=== PATIENT | male | born 1965 | race Caucasian/White ===

== ENCOUNTER 2018-09-21 22:54 | Emergency (ER) | payer BC | END 2018-09-22 01:20 | disposition home or self-care (01) | LOC: JER 22:54 ==

== ENCOUNTER 2019-10-30 23:25 | Inpatient (IN) | payer BC ==
[2019-10-30 23:39] VITALS: BMI 32.5
[2019-10-31] MEDS ORDERED: ACETAMINOPHEN 1000 MG/100 ML VIAL (NON FORMULARY) IVPB ONE ×2 (00:54→07:43)
[2019-10-31] MEDS ORDERED: SODIUM CHLORIDE 0.9% 500 ML INFUS.BAG IV ONE (00:54)
--- NOTE | 2019-10-31 00:54 | PDOC ---
History of Present Illness - General Chief Complaint: Chest Pain Stated Complaint: CHEST PAIN Time Seen by Provider: 10/30/19 23:55 - History of Present Illness Initial Comments: Richard Wetzel is a 54 y/o male with PMH significant for HTN. Presents today with first time chest pain. Gradual onset at 4:15pm after he took his autistic daughter to an appt at the electrical technician instructor's office and was helping hold her down for a blood draw. Pain is non reproducible. Describes the sensation as chest pressure. No pain radiation. Mildly pleuritic chest pain. Denies dizziness/shortness of breath/abdominal pain/leg swelling. Mild diaphoresis. SocHx: never smoker FamHx: Mother has CABG in 60s Past History - Medical History Allergies/Adverse Reactions: Allergies Allergy/AdvReac Type Severity Reaction Status Date / Time Penicillins Allergy Verified 10/30/19 23:39 Home Medications: Ambulatory Orders NK [No Known Home Medication] 10/31/19 Asthma: Yes COPD: No HTN: Yes (no med) Other medical history: hemocromotosis - Psycho-Social/Smoking History Smoking History: Never smoked Have you smoked in the past 12 months: No - Substance Abuse Hx (Audit-C & DAST Scrn) How often the patient has a drink containing alcohol: Never Score: In Men: 4 or > Positive; In Women: 3 or > Positive: 0 Screen Result (Pos requires Nsg. Audit-10AR): Negative Review of Systems - Review of Systems Comments:: GENERAL/CONSTITUTIONAL: No fever or chills. No weakness._ HEAD, EYES, EARS, NOSE AND THROAT: No change in vision. No change in hearing. No sore throat._ CARDIOVASCULAR: Reports chest pressure. No shortness of breath. RESPIRATORY: Denies cough, hemoptysis_ GASTROINTESTINAL: No nausea, vomiting, diarrhea or constipation._ GENITOURINARY: No dysuria, frequency, or change in urination._ MUSCULOSKELETAL: No joint or muscle swelling or pain. No neck or back pain._ SKIN: No rash. Reports diaphoresis. NEUROLOGIC: No headache, vertigo, loss of consciousness, or change in strength/sensation._ ENDOCRINE: No increased thirst. No abnormal weight change_ HEMATOLOGIC/LYMPHATIC: No anemia, easy bleeding, or history of blood clots._ ALLERGIC/IMMUNOLOGIC: No hives or skin allergy._ *Physical Exam - Vital Signs Last Vital Signs Temp Pulse Resp BP Pulse Ox 98.2 F 81 18 154/90 99 10/31/19 06:24 10/31/19 10:00 10/31/19 10:00 10/31/19 10:00 10/31/19 10:41 - Physical Exam GENERAL: Awake, alert, and oriented to person/place/time, in no acute distress_ HEAD: No signs of trauma, normocephalic, atraumatic _ EYES: PERRLA, EOMI, sclera anicteric, conjunctiva clear_ ENT: Hearing grossly normal, nares patent, oropharynx clear without exudates. No uvular deviation. Moist mucosa_ NECK: Normal ROM, supple, no lymphadenopathy, JVD, or masses_ LUNGS: No distress, speaks in full sentences, clear to auscultation bilaterally _ HEART: Regular rate and rhythm, normal S1 and S2, no murmurs appreciated, peripheral pulses normal and equal bilaterally._ ABDOMEN: Soft, nontender, normoactive bowel sounds. No guarding, no rebound. No masses_ EXTREMITIES: Normal inspection, Normal range of motion, no edema. No clubbing or cyanosis_ NEUROLOGICAL: Cranial nerves II through XII grossly intact. Normal speech, normal gait, no focal sensorimotor deficits _ SKIN: Warm, mildly diaphoretic, normal turgor, no rashes or lesions noted_ ED Treatment Course - LABORATORY CBC & Chemistry Diagram: 10/31/19 00:30 10/31/19 00:30 - ADDITIONAL ORDERS Additional order review: 10/31/19 00:30 RBC 5.14 MCV 91.6 MCHC 34.2 RDW 13.2 MPV 8.9 Neutrophils % 68.0 Lymphocytes % 19.5 Monocytes % 9.1 Eosinophils % 2.7 Basophils % 0.7 - RADIOLOGY Radiology Studies Ordered: Category Date Time Status CHEST X-RAY PORTABLE* [RAD] Stat Radiology 10/31/19 00:28 Completed - Medications Given in the ED: ED Medications Discontinued Medications Generic Name Dose Route Start Last Admin Trade Name Freq PRN Reason Stop Dose Admin Acetaminophen 1,000 mg 10/31/19 00:54 10/31/19 01:07 Ofirmev Injection - IVPB 10/31/19 00:55 1,000 mg ONCE ONE Administration Acetaminophen 1,000 mg 10/31/19 07:43 10/31/19 07:56 Ofirmev Injection - IVPB 10/31/19 07:44 1,000 mg ONCE ONE Administration Aspirin 324 mg 10/31/19 02:23 10/31/19 02:35 Asa - PO 10/31/19 02:24 324 mg ONCE ONE Administration Atorvastatin Calcium 80 mg 10/31/19 08:21 10/31/19 09:17 Lipitor - PO 10/31/19 08:22 80 mg ONCE ONE Administration Clopidogrel Bisulfate 600 mg 10/31/19 08:29 10/31/19 09:25 Plavix - PO 10/31/19 08:30 600 mg ONCE ONE Administration Enoxaparin Sodium 100 mg 10/31/19 03:57 10/31/19 04:02 Lovenox - SQ 10/31/19 03:58 100 mg ONCE ONE Administration Heparin Sodium (Porcine) 4,000 unit 10/31/19 07:56 10/31/19 08:00 Heparin - IVPUSH 10/31/19 07:57 Not Given ONCE ONE Sodium Chloride 1,000 ml 10/31/19 00:54 10/31/19 01:07 Normal Saline - IV 10/31/19 00:55 1,000 ml ONCE ONE Administration Medical Decision Making - Medical Decision Making 10/31/19 01:20 54M hx of HTN presenting with first time chest pain. Describes pressure like sensation in left chest. No radiation. HEART score 3. PERC 1 (age). -cbc, cmp -ekg, trop, cxr -d-dimer -fluids 10/31/19 01:45 EKG shows 76 bpm, NSR, incomplete RBBB, nml intervals, no ST elevation. Labs reviewed. Laboratory Last Values WBC 7.5 K/mm3 (4.0-10.0) 10/31/19 00:30 RBC 5.14 M/mm3 (4.00-5.60) 10/31/19 00:30 Hgb 16.1 GM/dL (11.7-16.9) 10/31/19 00:30 Hct 47.1 % (35.4-49) 10/31/19 00:30 MCV 91.6 fl (80-96) 10/31/19 00:30 MCH 31.3 pg (25.7-33.7) 10/31/19 00:30 MCHC 34.2 g/dl (32.0-35.9) 10/31/19 00:30 RDW 13.2 % (11.9-15.9) 10/31/19 00:30 Plt Count 189 K/MM3 (134-434) 10/31/19 00:30 MPV 8.9 fl (7.5-11.1) 10/31/19 00:30 Absolute Neuts (auto) 5.1 K/mm3 (1.5-8.0) 10/31/19 00:30 Neutrophils % 68.0 % (42.8-82.8) 10/31/19 00:30 Lymphocytes % 19.5 % (8-40) 10/31/19 00:30 Monocytes % 9.1 % (3.8-10.2) 10/31/19 00:30 Eosinophils % 2.7 % (0-4.5) 10/31/19 00:30 Basophils % 0.7 % (0-2.0) 10/31/19 00:30 Nucleated RBC % 0 % (0-0) 10/31/19 00:30 PT with INR 12.30 SEC (9.7-13.0) 10/31/19 01:20 INR 1.04 (0.83-1.09) 10/31/19 01:20 PTT (Actin FS) 31.1 SECONDS (25.2-36.5) 10/31/19 01:20 D-Dimer < 215 ng/ml (0-500) 10/31/19 01:20 Sodium 138 mmol/L (136-145) 10/31/19 00:30 Potassium 4.0 mmol/L (3.5-5.1) 10/31/19 00:30 Chloride 105 mmol/L (98-107) 10/31/19 00:30 Carbon Dioxide 29 mmol/L (21-32) 10/31/19 00:30 Anion Gap 5 MMOL/L (8-16) L 10/31/19 00:30 BUN 23.1 mg/dL (7-18) H 10/31/19 00:30 Creatinine 1.2 mg/dL (0.55-1.3) 10/31/19 00:30 Est GFR (CKD-EPI)AfAm 77.88 10/31/19 00:30 Est GFR (CKD-EPI)NonAf 67.19 10/31/19 00:30 Random Glucose 133 mg/dL (74-106) H 10/31/19 00:30 Calcium 8.3 mg/dL (8.5-10.1) L 10/31/19 00:30 Total Bilirubin 0.5 mg/dL (0.2-1) 10/31/19 00:30 AST 23 U/L (15-37) 10/31/19 00:30 ALT 42 U/L (13-61) 10/31/19 00:30 Alkaline Phosphatase 94 U/L (45-117) 10/31/19 00:30 Creatine Kinase 126 U/L (26-308) 10/31/19 00:30 Troponin I 0.19 ng/ml (0.00-0.05) H 10/31/19 00:30 Total Protein 7.0 g/dl (6.4-8.2) 10/31/19 00:30 Albumin 3.7 g/dl (3.4-5.0) 10/31/19 00:30 10/31/19 02:[address] Cody 10/31/19 03:35 D/w Dr. Cody. Will give aspirin and repeat trops at 0600. 10/31/19 03:51 D/w PEDIATRIC LICENSED PRACTICAL NURSE Dina Nava who accepts the patient for admission. 10/31/19 06:51 CXR shows possible signs of early PNA bilateral hilar aspects of lungs. Discharge - Discharge Information Problems reviewed: Yes Clinical Impression/Diagnosis: Chest pressure, Elevated troponin Condition: Guarded - Admission Yes - Follow up/Referral - Patient Discharge Instructions - Post Discharge Activity
[2019-10-31 00:56] LABS: BASO % 0.7 % (0-2.0); EOS % 2.7 % (0-4.5); HEMATOCRIT 47.1 % (35.4-49); HEMOGLOBIN 16.1 GM/dL (11.7-16.9); LYMPH % 19.5 % (8-40); MCH 31.3 pg (25.7-33.7); MCHC 34.2 g/dl (32.0-35.9); MEAN CELL VOLUME 91.6 fl (80-96); MEAN PLT VOLUME 8.9 fl (7.5-11.1); MONO % 9.1 % (3.8-10.2); PLATELET COUNT 189 K/MM3 (134-434); RBC 5.14 M/mm3 (4.00-5.60); RDW 13.2 % (11.9-15.9); WHITE BLOOD COUNT 7.5 K/mm3 (4.0-10.0)
[2019-10-31] MEDS ORDERED: ACETAMINOPHEN INJECTION 100 ML IVPB ONE ×2 (01:02→07:53)
--- NOTE | 2019-10-31 01:10 | PDOC ---
Attending Attestation - Resident Resident Name: Michael Burgos - ED Attending Attestation I have performed the following: I have examined & evaluated the patient, The case was reviewed & discussed with the resident, I agree w/resident's findings & plan - HPI HPI: 10/31/19 02:24 Pt comes with CP. 10/31/19 04:08 Pt states that he has HTN and gained weight and he has high cholesterol and hemochromatosis and he has not been maintaining his regular diet. He usually sees Dr. De Dios for the hemochromatosis for phebotomy treatments every few weeks; he has not been regularly, given the covid crisis. 10/31/19 19:46 Pt states that his om suffered with hemochromatosis. - Physicial Exam PE: 10/31/19 01:11 Agree with resident exam 10/31/19 19:48 Pt has obese abdomen. Heart and lungs sound normal. Pt appeas well. HEENT and skin normal no abd tenderness ext normal; no edema. - Medical Decision Making 10/31/19 02:24 Trop is elevated. Pt will be treated with ASA and lovenox and he will be admitted. Discharge - Discharge Information Problems reviewed: Yes Clinical Impression/Diagnosis: Chest pressure, Elevated troponin Condition: Guarded - Follow up/Referral - Patient Discharge Instructions - Post Discharge Activity
[2019-10-31 01:21] LABS: ALBUMIN 3.7 g/dl (3.4-5.0); BILIRUBIN,TOTAL 0.5 mg/dL (0.2-1); BLOOD UREA NITROGEN 23.1 mg/dL (7-18); CALCIUM 8.3 mg/dL (8.5-10.1); CREATININE 1.2 mg/dL (0.55-1.3)
[2019-10-31] MEDS ORDERED: ASPIRIN 81 MG CHEWABLE TABLETS PO ONE (02:23)
[2019-10-31] MEDS ORDERED: ASPIRIN 81 MG CHEWABLE TABLETS ONE (02:25)
[2019-10-31 02:35] LABS: INR 1.04 (0.83-1.09); PROTHROMBIN TIME (PATIENT) 12.3 SEC (9.7-13.0)
[2019-10-31 02:37] LABS: ACTIVATED PTT 31.1 SECONDS (25.2-36.5)
[2019-10-31] MEDS ORDERED: ENOXAPARIN NA (PORCINE) 100 MG/1 ML DISP.SYRIN SQ ONE ×2 (03:57→03:59)
--- NOTE | 2019-10-31 04:00 | HP ---
CHIEF COMPLAINT: Chest Pain PCP: Dr Yordy Blancas HISTORY OF PRESENT ILLNESS: This is a 54 y/o male with a PMHx of HTN (Norvasc). Who presents to the ED with chest pressure x yesterday afternoon which he attributes to holding his autistic child down for blood draw. He describes it as chest pressure non-radiating with an episode of diaphoresis. He reports taking his BP at home with 180's/111, taking his Norvasc 10mg which he stopped taking 1 year ago due to weight loss. Patient denies fever, chills, cough, SOB, dizziness, PANDA, palpitations, AP, N/V/D, constipation, dysuria. Patient has familial hx Heart Disease. ER course was notable for: (1) Troponin 0.19 (2) EKG- SR with an incomplete RBBB (3) Recent Travel: None PAST MEDICAL HISTORY: HTN PAST SURGICAL HISTORY: None Social History: Smoking: Denies Alcohol: Denies Drugs: Denies , with child, employed [employer] Driver Allergies Penicillins Allergy (Verified 10/30/19 23:39) HOME MEDICATIONS: Home Medications Medication Instructions Recorded NK [No Known Home Medication] 10/31/19 REVIEW OF SYSTEMS CONSTITUTIONAL: Absent: fever, chills, diaphoresis, generalized weakness, malaise, loss of appetite, weight change HEENT: Absent: rhinorrhea, nasal congestion, throat pain, throat swelling, difficulty swallowing, mouth swelling, ear pain, eye pain, visual changes CARDIOVASCULAR: chest pain Absent: syncope, palpitations, irregular heart rate, lightheadedness, peripheral edema RESPIRATORY: Absent: cough, shortness of breath, dyspnea with exertion, orthopnea, wheezing, stridor, hemoptysis GASTROINTESTINAL: Absent: abdominal pain, abdominal distension, nausea, vomiting, diarrhea, constipation, melena, hematochezia GENITOURINARY: Absent: dysuria, frequency, urgency, hesitancy, hematuria, flank pain, genital pain MUSCULOSKELETAL: Absent: myalgia, arthralgia, joint swelling, back pain, neck pain SKIN: Absent: rash, itching, pallor HEMATOLOGIC/IMMUNOLOGIC: Absent: easy bleeding, easy bruising, lymphadenopathy, frequent infections ENDOCRINE: Absent: unexplained weight gain, unexplained weight loss, heat intolerance, cold intolerance NEUROLOGIC: Absent: headache, focal weakness or paresthesias, dizziness, unsteady gait, seizure, mental status changes, bladder or bowel incontinence PSYCHIATRIC: Absent: anxiety, depression, suicidal or homicidal ideation, hallucinations. PHYSICAL EXAMINATION Vital Signs - 24 hr 10/30/19 10/31/19 10/31/19 23:36 00:39 03:48 Temperature 97.9 F Pulse Rate 78 Pulse Rate [ 64 Apical] Respiratory 18 16 Rate Blood Pressure 155/87 Blood Pressure 154/90 [Left Arm] O2 Sat by Pulse 99 100 98 Oximetry (%) GENERAL: Awake, alert, and fully oriented, in no acute distress. HEAD: Normal with no signs of trauma. EYES: Pupils equal, round and reactive to light, extraocular movements intact, sclera anicteric, conjunctiva clear. No lid lag. EARS, NOSE, THROAT: Ears normal, nares patent, oropharynx clear without exudates. Moist mucous membranes. NECK: Normal range of motion, supple without lymphadenopathy, JVD, or masses. LUNGS: Breath sounds equal, clear to auscultation bilaterally. No wheezes, and no crackles. No accessory muscle use. HEART: CP reproducible. Regular rate and rhythm, normal S1 and S2 without murmur, rub or gallop. ABDOMEN: Obese, soft, nontender, not distended, normoactive bowel sounds, no guarding, no rebound, no masses. No hepatomegaly or splenomegaly. MUSCULOSKELETAL: Normal range of motion at all joints. No bony deformities or tenderness. No CVA tenderness. UPPER EXTREMITIES: 2+ pulses, warm, well-perfused. No cyanosis. No clubbing. No peripheral edema. LOWER EXTREMITIES: 2+ pulses, warm, well-perfused. No calf tenderness. No peripheral edema. NEUROLOGICAL: Cranial nerves II-XII intact. Normal speech. Gait not observed. PSYCHIATRIC: Cooperative. Good eye contact. Appropriate mood and affect. SKIN: Warm, dry, normal turgor, no rashes or lesions noted, normal capillary refill. Laboratory Results - last 24 hr 10/31/19 10/31/19 10/31/19 00:30 00:30 01:20 WBC 7.5 RBC 5.14 Hgb 16.1 Hct 47.1 MCV 91.6 MCH 31.3 MCHC 34.2 RDW 13.2 Plt Count 189 MPV 8.9 Absolute Neuts (auto) 5.1 Neutrophils % 68.0 Lymphocytes % 19.5 Monocytes % 9.1 Eosinophils % 2.7 Basophils % 0.7 Nucleated RBC % 0 PT with INR 12.30 INR 1.04 PTT (Actin FS) 31.1 D-Dimer Sodium 138 Potassium 4.0 Chloride 105 Carbon Dioxide 29 Anion Gap 5 L BUN 23.1 H Creatinine 1.2 Est GFR (CKD-EPI)AfAm 77.88 Est GFR (CKD-EPI)NonAf 67.19 Random Glucose 133 H Calcium 8.3 L Total Bilirubin 0.5 AST 23 ALT 42 Alkaline Phosphatase 94 Creatine Kinase 126 Troponin I 0.19 H Total Protein 7.0 Albumin 3.7 10/31/19 01:20 WBC RBC Hgb Hct MCV MCH MCHC RDW Plt Count MPV Absolute Neuts (auto) Neutrophils % Lymphocytes % Monocytes % Eosinophils % Basophils % Nucleated RBC % PT with INR INR PTT (Actin FS) D-Dimer < 215 Sodium Potassium Chloride Carbon Dioxide Anion Gap BUN Creatinine Est GFR (CKD-EPI)AfAm Est GFR (CKD-EPI)NonAf Random Glucose Calcium Total Bilirubin AST ALT Alkaline Phosphatase Creatine Kinase Troponin I Total Protein Albumin ASSESSMENT/PLAN: This is a 54 y/o male with a PMHx of HTN. Placed in Telemetry Observation for Ch est Pain r/o ACS for further evaluation of their emergent condition. Plan; See Problem List FEN PO fluids as tolerated Replete lytes prn Low Na Diet DVT ppx OOB SCDs Consider AC if LOS > 48 hrs Dispo: Observation Family Medical History Family Hx Cancer: Father (Lung with Mets) Family Hx Coronary Artery Disease: Mother (s/p CABG) Problem List - Problem (1) Chest pain Assessment/Plan: r/o ACS HEART Score 3 DILAN Score 1 Continue cardiac monitoring Serial Enzymes elevated x1, trend EKG- SR with incomplete RBBB, no change compared to prior study Cardiology aware and will follow per ED resident Asa Tylenol prn Consider Echo when COVID status established Lipid Profile, Mg, Phos in am Code(s): R07.9 - CHEST PAIN, UNSPECIFIED (2) Elevated troponin Assessment/Plan: r/o ACS Serial Enzymes Cardiology consult Code(s): R79.89 - OTHER SPECIFIED ABNORMAL FINDINGS OF BLOOD CHEMISTRY (3) Hypertension Assessment/Plan: Sub optimal Monitor BP Continue Norvasc Monitor renal function Code(s): I10 - ESSENTIAL (PRIMARY) HYPERTENSION Visit type - Emergency Visit Emergency Visit: Yes ED Registration Date: 10/31/19 Care time: The patient presented to the Emergency Department on the above date and was hospitalized for further evaluation of their emergent condition. - New Patient This patient is new to me today: Yes Date on this admission: 10/31/19 - Critical Care Critical Care patient: No
[2019-10-31 06:25] VITALS: TEMP 98.2
--- NOTE | 2019-10-31 06:29 | CON.CARD ---
Consult Consult Specialty:: Cardiology Referred by:: Dr. Fraser Reason for Consultation:: chest pain - History of Present Illness Chief Complaint: chest pain History of Present Illness: Presented to ER with 4 hours of substernal CP. Initial TnI equivocal, rising. 54 M with HTN/HLD/hemochromatosis presents to ER with 4 hours of substernal chest pressure which began after a difficult doctor's visit with his disabled daughter. Pain described as " a heavy brick sitting on my chest" associated with diaphoresis. 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: No: Alzheimer's, CVA, Dementia, Migraine, Multiple Sclerosis, Peripheral Neuropathy, Parkinson's, Seizure, Syncope, TIA, Vertigo, Other Cardio/Vascular: Yes: HTN, Hyperlipdemia Pulmonary: No: Asthma, Bronchitis, Cancer, COPD, O2 Dependent, Pneumonia, Previously Intubated, Pulmonary Embolus, Pulmonary Fibrosis, Sleep Apnea, Other Gastrointestinal: No: Ascites, Cancer, Constipation, Crohn's Disease, Diverticulitis, Diverticulosis, Esophageal Varices, Gastritis, GERD, GI Bleed, Hemorrhoids, Hiatal Hernia, Inflamatory Bowel Disease, Irritable Bowel Disease, Pancreatitis, Peptic Ulcer Disease, Ulcerative Colitis, Other Hepatobiliary: No: Cirrhosis, Cholelithiasis, Cholecystitis, Chol edocholithiasis, Hepatitis A, Hepatitis B, Hepatitis C, Other Heme/Onc: Yes: Hemochromatosis Infectious Disease: No: AIDS, C-Diff, Herpes Zoster, HIV, MRSA, STD's, Tuberculosis, VREF, Other Psych: No: Addictions, Anxiety, Bipolar, Depression, Panic, Psychosis, Schizophrenia, Other Musculoskeletal: No: Bursitis, Chronic low back pain, Hemiparesis, Hemiplegia, Osteoarthritis, Paraplegia, Other Rheumatology: No: Fibromyalgia, Gout, Lupus, Rheumatoid Arthritis, Sarcoidosis, Vasculitis, Other ENT: No: Allergic Rhinitis, Sinusitis, Other Endocrine: No: [place]'s Disease, [place]'s Disease, Diabetes Insipidus, Diabetes Mellitus, Hyperparathyroidism, Hyperthyroidism, Hypothyroidism, Osteopenia, SIADH, Other - Past Surgical History Past Surgical History: No: None, AAA Repair, AICD, Amputation, Appendectomy, Arthrosocopy, AV Fistula/Graft, Bariatric Surgery, Breast Biopsy, Bypass, CABG, Carotid Endarterectomy, Cataract Removal, Cholecystectomy, Colectomy, Colonoscopy, Colostomy, Craniotomy, , Cystectomy, Hernia Repair, Hysterectomy, Ileal Conduit, Ileosotomy, Joint Replacement, Kidney Transplant, Laminectomy, Liver Transplant, Mastectomy, Nephrectomy, Oopherectomy, Orc hiectomy, Permanent Pacemaker, Prostatectomy, Splenectomy, Stent, Thoracotomy, TURP, Tonsillectomy, Tubal Ligation, Upper Endoscopy, Valve Replacement, Vasectomy, Vein Stripping/Ligation - Alcohol/Substance Use Hx Alcohol Use: No - Smoking History Smoking history: Never smoked Have you smoked in the past 12 months: No - Social History Usual Living Arrangement: With Spouse ADL: Independent Place of : [facility] Home Medications - Allergies Allergies/Adverse Reactions: Allergies Allergy/AdvReac Type Severity Reaction Status Date / Time Penicillins Allergy Verified 10/30/19 23:39 - Home Medications Home Medications: Ambulatory Orders NK [No Known Home Medication] 10/31/19 Family Medical History Family Hx Cardiac Disorders: Mother (CABG 50s) Review of Systems Findings/Remarks: see HPI - Review of Systems Constitutional: reports: No Symptoms Eyes: reports: No Symptoms HENT: reports: No Symptoms, Ocular Prosthesis Cardiovascular: reports: Chest Pain Respiratory: reports: No Symptoms Gastrointestinal: reports: No Symptoms Genitourinary: reports: No Symptoms Breasts: reports: No Symptoms Reported Musculoskeletal: reports: No Symptoms Integumentary: reports: No Symptoms Neurological: reports: No Symptoms Endocrine: reports: No Symptoms Hematology/Lymphatic: reports: No Symptoms Psychiatric: reports: No Symptoms - Risk Factors Known Risk Factors: Yes: Hypercholesterolemia, Hypertension Vital Signs: Vital Signs Temperature 98.2 F 10/31/19 06:24 Pulse Rate 62 10/31/19 06:24 Respiratory Rate 17 10/31/19 06:24 Blood Pressure 116/81 10/31/19 06:24 O2 Sat by Pulse Oximetry (%) 99 10/31/19 06:05 Constitutional: Yes: No Distress, Calm Eyes: Yes: Conjunctiva Clear, EOM Intact Neck: Yes: Supple, Trachea Midline Respiratory: Yes: Regular, CTA Bilaterally Gastrointestinal: Yes: Soft (nt) Cardiovascular: Yes: Regular Rate and Rhythm JVD: No Carotid Bruit: No PMI: Non-Displaced Heart Sounds: Yes: S1, S2 (rrr, no m/r/g) Edema: No Peripheral Pulses WNL: Yes Integumentary: Yes: WNL Neurological: Yes: Alert, Oriented ...Motor Strength: WNL Psychiatric: Yes: WNL - Other Data Labs, Other Data: CBC, BMP 10/31/19 00:30 10/31/19 00:30 INR, PTT INR 1.04 (0.83-1.09) 10/31/19 01:20 Troponin, BNP 10/31/19 00:30 Troponin I 0.19 H Troponin, BNP 10/31/19 00:30 Troponin I 0.19 H Laboratory Tests 10/31/19 10/31/19 10/31/19 00:30 00:30 01:20 WBC 7.5 Hgb 16.1 Plt Count 189 D-Dimer < 215 Potassium 4.0 Creatinine 1.2 Creatine Kinase 126 Troponin I 0.19 H Laboratory Tests 10/31/19 10/31/19 10/31/19 00:30 03:50 06:00 Troponin I 0.19 H 0.59 H Triglycerides Cholesterol Total LDL Cholesterol HDL Cholesterol TSH 7.86 H COVID-19 ([facility]AN) Pending 10/31/19 06:00 Troponin I Triglycerides 564 H Cholesterol 228 H Total LDL Cholesterol 110 H HDL Cholesterol 24 L TSH COVID-19 ([facility]HAN) Echo: Pending Imaging - Results Chest X-ray: Image Reviewed (no acute findings) EKG: Image Reviewed Assessment/Plan IMP: Substernal CP c/w unstable angina/ NSTEMI Chronic HTN HLD Hemochromatosis REC: 1. NSTEMI: -ASA -Plavix load -Received Lovenox in ER, will switch to UFH gtts 12 hours from Lovenox dose -High intensity statin -Start metoprolol tartrate 12.5 BID -Serial enzymes -Plans made for transfer to [facility] for cardiac cath 2. Chronic HTN: -slightly above goal -Start beta juan luis as above for control of BP/pulse and anginal benefit 3. HLD: -High intensity statin as per ACS protocol 4. Hemochromatosis: -sees Heme -Has regular phlebotomy
[2019-10-31] MEDS ORDERED: ACETAMINOPHEN 325 MG TABLET (FP) PO PRN (07:00)
[2019-10-31] MEDS ORDERED: HEPARIN NA (PORCINE) 5,000 UNITS/ML 1ML VIAL IVPUSH ONE (07:56)
[2019-10-31] MEDS ORDERED: HEPARIN INFUSION - 25,000 UNITS/500 ML INFUS.BAG IVPB SCH (08:00)
[2019-10-31 08:04] LABS: CHOLESTEROL 228 mg/dL (50-200); TRIGLYCERIDES 564 mg/dL (0-150)
[2019-10-31 08:05] LABS: MAGNESIUM 2.3 mg/dL (1.8-2.4); PHOSPHOROUS 2.9 mg/dL (2.5-4.9)
[2019-10-31 08:06] LABS: HDL CHOLESTEROL 24 mg/dL (40-60); LDL CHOLESTEROL (ONLY SJRH) 110 mg/dL (5-100)
[2019-10-31] MEDS ORDERED: ATORVASTATIN CA 80 MG TABLET (FP) PO ONE (08:21)
[2019-10-31] MEDS ORDERED: CLOPIDOGREL BISULFATE 300 MG TABLET PO ONE (08:29)
[2019-10-31] MEDS ORDERED: INSULIN SLIDING SCALE (NOVOLOG) 1 VIAL SQ SCH ×2 (09:15→10:00)
[2019-10-31] MEDS ORDERED: ATORVASTATIN CA 80 MG TABLET (FP) ONE (09:15)
[2019-10-31] MEDS ORDERED: HEPARIN NA (PORCINE) 5,000 UNITS/ML 1ML VIAL IVPUSH PRN ×2 (09:20)
[2019-10-31] MEDS ORDERED: METOPROLOL TARTRATE 25 MG TABLET (FP) PO SCH (10:00)
[2019-10-31] MEDS ORDERED: amLODIPine BESYLATE 10 MG TABLET (FP) PO SCH (10:00)
[2019-10-31] MEDS ORDERED: METOPROLOL TARTRATE 25 MG TABLET (FP) ONE ×2 (10:32→10:54)
[2019-10-31] MEDS ORDERED: HEPARIN INFUSION - 25,000 UNITS/500 ML INFUS.BAG IVPB ONE (10:32)
--- NOTE | 2019-10-31 11:01 | PN ---
Progress Note (short form) - Note Progress Note: Vital Signs Temperature 98.2 F 10/31/19 06:24 Pulse Rate 79 10/31/19 07:40 Respiratory Rate 19 10/31/19 07:40 Blood Pressure 149/91 10/31/19 07:40 O2 Sat by Pulse Oximetry (%) 99 10/31/19 10:41 Initial Vital Signs Temp Pulse Resp BP Pulse Ox 97.9 F 78 18 155/87 99 10/30/19 23:36 10/30/19 23:36 10/30/19 23:36 10/30/19 23:36 10/30/19 23:36 GENERAL: The patient is awake, alert, and fully oriented, in no acute distress. HEAD: Normal with no signs of trauma. EYES: PERRL, extraocular movements intact, sclera anicteric, conjunctiva clear. ENT: Ears normal, oropharynx clear without exudates, moist mucous membranes. NECK: Trachea midline, full range of motion, supple. LUNGS: Breath sounds equal, clear to auscultation bilaterally, no wheezes, no crackles, no accessory muscle use. HEART: Regular rate and rhythm, S1, S2 without murmur, rub or gallop. ABDOMEN: Soft, nontender, nondistended, normoactive bowel sounds, no guarding, no rebound, no hepatosplenomegaly, no masses. EXTREMITIES: 2+ pulses, warm, well-perfused, no edema. NEUROLOGICAL: Cranial nerves II through XII grossly intact. Normal speech, gait not observed. PSYCH: Normal mood, normal affect. SKIN: Warm, dry, normal turgor, no rashes or lesions noted CBCD WBC 7.5 K/mm3 (4.0-10.0) 10/31/19 00:30 RBC 5.14 M/mm3 (4.00-5.60) 10/31/19 00:30 Hgb 16.1 GM/dL (11.7-16.9) 10/31/19 00:30 Hct 47.1 % (35.4-49) 10/31/19 00:30 MCV 91.6 fl (80-96) 10/31/19 00:30 MCHC 34.2 g/dl (32.0-35.9) 10/31/19 00:30 RDW 13.2 % (11.9-15.9) 10/31/19 00:30 Plt Count 189 K/MM3 (134-434) 10/31/19 00:30 MPV 8.9 fl (7.5-11.1) 10/31/19 00:30 CMP Sodium 138 mmol/L (136-145) 10/31/19 00:30 Potassium 4.0 mmol/L (3.5-5.1) 10/31/19 00:30 Chloride 105 mmol/L (98-107) 10/31/19 00:30 Carbon Dioxide 29 mmol/L (21-32) 10/31/19 00:30 Anion Gap 5 MMOL/L (8-16) L 10/31/19 00:30 BUN 23.1 mg/dL (7-18) H 10/31/19 00:30 Creatinine 1.2 mg/dL (0.55-1.3) 10/31/19 00:30 Random Glucose 133 mg/dL (74-106) H 10/31/19 00:30 Calcium 8.3 mg/dL (8.5-10.1) L 10/31/19 00:30 Total Bilirubin 0.5 mg/dL (0.2-1) 10/31/19 00:30 AST 23 U/L (15-37) 10/31/19 00:30 ALT 42 U/L (13-61) 10/31/19 00:30 Alkaline Phosphatase 94 U/L (45-117) 10/31/19 00:30 Total Protein 7.0 g/dl (6.4-8.2) 10/31/19 00:30 Albumin 3.7 g/dl (3.4-5.0) 10/31/19 00:30 CARDIAC ENZYMES Creatine Kinase 126 U/L (26-308) 10/31/19 00:30 Troponin I 0.59 ng/ml (0.00-0.05) H 10/31/19 06:00 Current Medications Generic Name Dose Route Start Last Admin Trade Name Freq PRN Reason Stop Dose Admin Acetaminophen 650 mg 10/31/19 07:00 Tylenol - PO Q6H PRN PAIN LEVEL 6-10 Amlodipine Besylate 10 mg 10/31/19 10:00 10/31/19 10:30 Norvasc - PO 10 mg DAILY [facility] Administration Aspirin 81 mg 11/01/19 10:00 Asa - PO DAILY [facility] Atorvastatin Calcium 80 mg 10/31/19 22:00 Lipitor - PO HS [facility] Clopidogrel Bisulfate 75 mg 11/01/19 10:00 Plavix - PO DAILY [facility] Heparin Sodium (Porcine) 1,000 unit 10/31/19 09:20 Heparin - IVPUSH PRN PRN Heparin Heparin Sodium (Porcine) 5,000 unit 10/31/19 09:20 Heparin - IVPUSH PRN PRN Heparin Heparin Sodium (Porcine) 25, 500 mls @ 20 mls/hr 10/31/19 16:00 000 unit/ Sodium Chloride IV TITR [facility] Protocol 1,000 UNIT/HR Insulin Aspart 1 vial 10/31/19 10:00 10/31/19 10:31 Novolog Vial Sliding Scale - SQ Not Given Q4HPO [facility] Protocol Metoprolol Tartrate 12.5 mg 10/31/19 10:00 Lopressor - PO BID [facility] Home Medications Medication Instructions Recorded NK [No Known Home Medication] 10/31/19 EKG- SR with incomplete RBBB, no change compared to prior study Assessment/Plan: #NSTME: on heparin drip , Plavix, tongue lining stitcher on the case to transfer the latia ent #Hypertension: on Lopressor po bid, DVT Px: Lovenox
[2019-10-31 11:19] VITALS: BP 154/90; PULSE 81
--- NOTE | 2019-10-31 11:51 | CON.HO ---
Consult - text type - Consultation Consultation Note: 54 y/o male with a PMHx of HTN (Norvasc). Who presents to the ED with chest pressure x yesterday afternoon which he attributes to holding his autistic child down for blood draw. He describes it as chest pressure non-radiating with an episode of diaphoresis. He reports taking his BP at home with 180's/111, taking his Norvasc 10mg which he stopped taking 1 year ago due to weight loss. Patient denies fever, chills, cough, SOB, dizziness, PANDA, palpitations, AP, N/V/D, constipation, dysuria. Patient has familial hx Heart Disease. Recent Travel: None PAST MEDICAL HISTORY: HTN PAST SURGICAL HISTORY: None Social History: Smoking: Denies Alcohol: Denies Drugs: Denies , with child, employed [employer] Layer Allergies Penicillins Allergy (Verified 10/30/19 23:39) HOME MEDICATIONS: Home Medications Medication Instructions Recorded NK [No Known Home Medication] 10/31/19 PHYSICAL EXAMINATION Last Vital Signs Temp Pulse Resp BP Pulse Ox 98.2 F 81 18 154/90 99 10/31/19 06:24 10/31/19 10:00 10/31/19 10:00 10/31/19 10:00 10/31/19 10:41 HEENT: VERN, EOM Intact Oropharynx: No thrush, No mucositis Neck: Supple Nodes: Without adenopathy Breasts: Without masses Cor: RSR, No murmurs, No gallops Lungs: Clear to P&A Abd: Soft, Normal bowel sounds, No organomegaly Ext:No significant edema Skin: No rashes, Integument intact Laboratory Results - last 24 hr 10/31/19 10/31/19 10/31/19 00:30 00:30 01:20 WBC 7.5 RBC 5.14 Hgb 16.1 Hct 47.1 MCV 91.6 MCH 31.3 MCHC 34.2 RDW 13.2 Plt Count 189 MPV 8.9 Absolute Neuts (auto) 5.1 Neutrophils % 68.0 Lymphocytes % 19.5 Monocytes % 9.1 Eosinophils % 2.7 Basophils % 0.7 Nucleated RBC % 0 PT with INR 12.30 INR 1.04 PTT (Actin FS) 31.1 D-Dimer Sodium 138 Potassium 4.0 Chloride 105 Carbon Dioxide 29 Anion Gap 5 L BUN 23.1 H Creatinine 1.2 Est GFR (CKD-EPI)AfAm 77.88 Est GFR (CKD-EPI)NonAf 67.19 Random Glucose 133 H Calcium 8.3 L Total Bilirubin 0.5 AST 23 ALT 42 Alkaline Phosphatase 94 Creatine Kinase 126 Troponin I 0.19 H Total Protein 7.0 Albumin 3.7 10/31/19 01:20 WBC RBC Hgb Hct MCV MCH MCHC RDW Plt Count MPV Absolute Neuts (auto) Neutrophils % Lymphocytes % Monocytes % Eosinophils % Basophils % Nucleated RBC % PT with INR INR PTT (Actin FS) D-Dimer < 215 Sodium Potassium Chloride Carbon Dioxide Anion Gap BUN Creatinine Est GFR (CKD-EPI)AfAm Est GFR (CKD-EPI)NonAf Random Glucose Calcium Total Bilirubin AST ALT Alkaline Phosphatase Creatine Kinase Troponin I Total Protein Albumin ASSESSMENT/PLAN:
[2019-10-31] MEDS ORDERED: HEPARIN - 25,000 UNIT in SODIUM CHLORIDE 495 ML IV SCH (16:00)
[2019-10-31] MEDS ORDERED: ATORVASTATIN CA 80 MG TABLET (FP) PO SCH (22:00)
--- NOTE | 2019-11-01 08:33 | DS ---
Physical Examination Vital Signs: Patient was transferred to [place] for further work up by for catherization , accepting MD [place]. Patient was found to have NSTEMI. further w/u at [place]. Given loading dose of Plavix 600mg and placed on maintenance dose 75mg daily, on Heparin drip per wheel adjuster. Vital Signs Temperature 98.2 F 10/31/19 06:24 Pulse Rate 81 10/31/19 10:00 Respiratory Rate 18 10/31/19 10:00 Blood Pressure 154/90 10/31/19 10:00 O2 Sat by Pulse Oximetry (%) 99 10/31/19 10:41 CBCD WBC 7.5 K/mm3 (4.0-10.0) 10/31/19 00:30 RBC 5.14 M/mm3 (4.00-5.60) 10/31/19 00:30 Hgb 16.1 GM/dL (11.7-16.9) 10/31/19 00:30 Hct 47.1 % (35.4-49) 10/31/19 00:30 MCV 91.6 fl (80-96) 10/31/19 00:30 MCHC 34.2 g/dl (32.0-35.9) 10/31/19 00:30 RDW 13.2 % (11.9-15.9) 10/31/19 00:30 Plt Count 189 K/MM3 (134-434) 10/31/19 00:30 MPV 8.9 fl (7.5-11.1) 10/31/19 00:30 CMP Sodium 138 mmol/L (136-145) 10/31/19 00:30 Potassium 4.0 mmol/L (3.5-5.1) 10/31/19 00:30 Chloride 105 mmol/L (98-107) 10/31/19 00:30 Carbon Dioxide 29 mmol/L (21-32) 10/31/19 00:30 Anion Gap 5 MMOL/L (8-16) L 10/31/19 00:30 BUN 23.1 mg/dL (7-18) H 10/31/19 00:30 Creatinine 1.2 mg/dL (0.55-1.3) 10/31/19 00:30 Random Glucose 133 mg/dL (74-106) H 10/31/19 00:30 Calcium 8.3 mg/dL (8.5-10.1) L 10/31/19 00:30 Total Bilirubin 0.5 mg/dL (0.2-1) 10/31/19 00:30 AST 23 U/L (15-37) 10/31/19 00:30 ALT 42 U/L (13-61) 10/31/19 00:30 Alkaline Phosphatase 94 U/L (45-117) 10/31/19 00:30 Total Protein 7.0 g/dl (6.4-8.2) 10/31/19 00:30 Albumin 3.7 g/dl (3.4-5.0) 10/31/19 00:30 CARDIAC ENZYMES Creatine Kinase 126 U/L (26-308) 10/31/19 00:30 Troponin I 0.59 ng/ml (0.00-0.05) H 10/31/19 06:00 Home Medications Medication Instructions Recorded NK [No Known Home Medication] 10/31/19 Current Medications Generic Name Dose Route Start Last Admin Trade Name Freq PRN Reason Stop Dose Admin Acetaminophen 650 mg 10/31/19 07:00 Tylenol - PO Q6H PRN PAIN LEVEL 6-10 Amlodipine Besylate 10 mg 10/31/19 10:00 10/31/19 10:30 Norvasc - PO 10 mg DAILY [facility] Administration Aspirin 81 mg 11/01/19 10:00 Asa - PO DAILY [facility] Atorvastatin Calcium 80 mg 10/31/19 22:00 Lipitor - PO HS [facility] Clopidogrel Bisulfate 75 mg 11/01/19 10:00 Plavix - PO DAILY [facility] Heparin Sodium (Porcine) 1,000 unit 10/31/19 09:20 Heparin - IVPUSH PRN PRN Heparin Heparin Sodium (Porcine) 5,000 unit 10/31/19 09:20 Heparin - IVPUSH PRN PRN Heparin Heparin Sodium (Porcine) 25, 500 mls @ 20 mls/hr 10/31/19 16:00 000 unit/ Sodium Chloride IV TITR [facility] Protocol 1,000 UNIT/HR Insulin Aspart 1 vial 10/31/19 10:00 10/31/19 10:31 Novolog Vial Sliding Scale - SQ Not Given Q4HPO [facility] Protocol Metoprolol Tartrate 12.5 mg 10/31/19 10:00 10/31/19 10:50 Lopressor - PO 12.5 mg BID [facility] Administration Labs: CBC, BMP 10/31/19 00:30 10/31/19 00:30 Discharge Summary Problems reviewed: Yes Reason For Visit: ELEVATED TROPONIN LEVEL Current Active Problems Chest pain (Acute) Chest pressure (Acute) Elevated troponin (Acute) Hypertension (Acute) Condition: Guarded - Instructions Referrals: Yordy Blancas MD [Primary Care Provider] - - Home Medications Comprehensive Discharge Medication List: Ambulatory Orders NK [No Known Home Medication] 10/31/19 This patient is new to me today: Yes Date on this admission: 10/31/19 Emergency Visit: Yes ED Registration Date: 10/31/19 Care time: The patient presented to the Emergency Department on the above date and was hospitalized for further evaluation of their emergent condition. Critical Care patient: No - Discharge Referral Referred to [facility] Med P.C.: No
[2019-11-01] MEDS ORDERED: ASPIRIN 81 MG CHEWABLE TABLETS PO SCH (10:00)
[2019-11-01] MEDS ORDERED: CLOPIDOGREL BISULFATE 75 MG TABLET (FP) PO SCH (10:00)
--- NOTE | 2019-11-01 14:08 | EKG ---
Test Reason : Blood Pressure : / mmHG Vent. Rate : 070 BPM Atrial Rate : 070 BPM P-R Int : 170 ms QRS Dur : 096 ms QT Int : 436 ms P-R-T Axes : 025 000 046 degrees QTc Int : 470 ms NORMAL SINUS RHYTHM INCOMPLETE RIGHT BUNDLE BRANCH BLOCK BORDERLINE ECG WHEN COMPARED WITH ECG OF 30-OCT-2019 23:28, NO SIGNIFICANT CHANGE WAS FOUND Confirmed by SG MOULTON MD ([id number]) on 11/01/2019 2:07:47 PM Referred By: Confirmed By:SG MOULTON MD
--- NOTE | 2019-11-01 14:10 | EKG ---
Test Reason : Blood Pressure : / mmHG Vent. Rate : 076 BPM Atrial Rate : 076 BPM P-R Int : 168 ms QRS Dur : 096 ms QT Int : 426 ms P-R-T Axes : 067 -02 057 degrees QTc Int : 479 ms NORMAL SINUS RHYTHM POSSIBLE LEFT ATRIAL ENLARGEMENT INCOMPLETE RIGHT BUNDLE BRANCH BLOCK BORDERLINE ECG WHEN COMPARED WITH ECG OF 21-SEP-2018 23:00, NO SIGNIFICANT CHANGE WAS FOUND Confirmed by SAIGE WINTER, SG ([id number]) on 11/01/2019 2:09:58 PM Referred By: Confirmed By:SG MOULTON MD
== END 2019-10-31 13:05 | disposition short-term general hospital (02) | DRG 282 ==
LOC: JER 23:25 → JERBED 10-31 03:50
PROVIDERS: ADMIT Internal Medicine; ATTEND Internal Medicine
DX: I21.4 Non-ST elevation (NSTEMI) myocardial infarction (principal); I10 Essential (primary) hypertension; Z88.0 Allergy status to penicillin; I45.10 Unspecified right bundle-branch block; E78.5 Hyperlipidemia, unspecified; E83.119 Hemochromatosis, unspecified
CPT/HCPCS: 36415; 71045-TC-FY; 80053; 80061; 82550; 82962; 83036; 83721; 83735; 84100; 84443; 84484; 85025; 85379; 85610; 85730; 93005; 93010; 99285-25; J0131; U0003

== ENCOUNTER 2019-11-07 22:11 | Emergency (ER) | payer BC ==
[2019-11-07 22:15] VITALS: TEMP 98.6; BMI 26.6
--- NOTE | 2019-11-07 22:22 | PDOC ---
Attending Attestation - Resident Resident Name: Madhuri Barbosahan - ED Attending Attestation I have performed the following: I have examined & evaluated the patient, The case was reviewed & discussed with the resident, I agree w/resident's findings & plan - HPI HPI: 11/07/19 22:24 Pt was here on 10/31/2019 with Chest pain and at that time he had elevated troponins and he was seen by cardiology and monitored on the telemetry unit. During that hospitalization he went to [facility] for cardiac cath, and 2 stents were placed. 11/07/19 22:37 Today he comes with nausea 11/07/19 22:38 - Physicial Exam PE: 11/07/19 22:26 Normal exam. Agree with resident exam 11/08/19 01:16 GENERAL: Awake, alert, and fully oriented, in no acute distress HEAD: No signs of trauma EYES: PERRLA, EOMI, sclera anicteric, conjunctiva clear ENT: Auricles normal inspection, hearing grossly normal, nares patent, oropharynx clear without exudates. Moist mucosa NECK: Normal ROM, supple, no lymphadenopathy, JVD, or masses LUNGS: Breath sounds equal, clear to auscultation bilaterally. No wheezes, and no crackles HEART: Regular rate and rhythm, normal S1 and S2, no murmurs, rubs or gallops ABDOMEN: Soft, nontender, normoactive bowel sounds. No guarding, no rebound. No masses EXTREMITIES: Normal range of motion, no edema. No clubbing or cyanosis. No cords, erythema, or tenderness NEUROLOGICAL: Cranial nerves II through XII grossly intact. SKIN: Warm, Dry, normal turgor, no rashes lesions noted. - Medical Decision Making 11/08/19 02:39 Patient Name: CHEPE MCKEON THIS IS A PRELIMINARY REPORT FROM [facility] DATE OF SERVICE: 2019-11-08 00:18:27 IMAGES: [id number] EXAM: CHEST CTA HISTORY: 54-year-old male assess for pulmonary embolism COMPARISON: None. Contrast: 72.8 mL Omnipaque 350 intravenous contrast Technique: Following IV contrast administration thin axial images were obtained through the chest for pulmonary artery evaluation by pulmonary embolism protocol with 3-D post-processing included coronal and sagittal reformatted 3-D MIP images which were permanently stored in the patient medical record PACS. FINDINGS: No large central pulmonary embolism. Evaluation of the distal segmental branches are limited by artifact. No aortic aneurysm or dissection. Calcified coronary artery arteriosclerosis is noted. Borderline nonspecific mediastinal lymph nodes. Basilar atelectasis. No pleural effusion. No pneumothorax. Limited evaluation of upper abdomen appears unremarkable. Bridging thoracic osteophytes. Mild to moderate multilevel degenerative disc disease. IMPRESSION: No large central pulmonary embolism. Calcified coronary artery arteriosclerosis is noted. Borderline nonspecific mediastinal lymph nodes. Bridging thoracic osteophytes. Mild to moderate multilevel degenerative disc disease. 11/08/19 05:04 2nd cardiac enzyme normal; pt feeling better; he will follow with his industrial economics teacher on Saturday as previously scheduled. Discharge - Discharge Information Problems reviewed: Yes Clinical Impression/Diagnosis: Nausea, Lightheadedness Condition: Stable Disposition: HOME - Follow up/Referral Referrals: Yordy Blancas MD [Primary Care Provider] - - Patient Discharge Instructions Patient Printed Discharge Instructions: DI for Shortness of Breath Additional Instructions: You came into the emergency department after feeling lightheaded and nauseous. Your troponin was mildly elevated (0.07) and this is likely due to your recent cardiac procedure. Other lab work, Xray, and EKG did not indicate acute pathology. A CT scan of your chest did not show a blood clot. Eat and hydrate throughout the day to prevent dehydration and low blood sugar levels. Continue taking home medications as prescribed by your physician. Follow up with your industrial economics teacher at your already scheduled appointment. Your workup is not complete until you do so. Immediate medical attention is required if you have: any chest pain, palpitations, shortness of breath, severe headaches, changes in vision, episodes of fainting, focal numbness or weakness, any severe abdominal pain, any black tarry stool, or any new or concerning symptoms. If you think you are having an emergency, call for emergency medical services or present to the emergency department right away. - Post Discharge Activity
[2019-11-07 23:10] LABS: BASO % 0.6 % (0-2.0); EOS % 2.3 % (0-4.5); HEMATOCRIT 51.5 % (35.4-49); HEMOGLOBIN 17.4 GM/dL (11.7-16.9); LYMPH % 9.8 % (8-40); MCH 30.9 pg (25.7-33.7); MCHC 33.8 g/dl (32.0-35.9); MEAN CELL VOLUME 91.4 fl (80-96); MONO % 7.4 % (3.8-10.2); NEUT % 79.9 % (42.8-82.8); PLATELET COUNT 226 K/MM3 (134-434); RBC 5.64 M/mm3 (4.00-5.60); RDW 13.2 % (11.9-15.9)
--- NOTE | 2019-11-07 23:14 | PDOC ---
History of Present Illness - General Chief Complaint: Nausea Stated Complaint: NAUSEA Time Seen by Provider: 11/07/19 22:20 History Source: Patient - History of Present Illness Initial Comments: 11/07/19 23:12 54M history of recent NSTEMI s/p 2 stents one week prior at [facility], HTN, HLD, hemochromatosis, who presents following an episode of diaphoresis, pale appearance nausea, SOB, dizziness/lightheadedness, and warmth while sitting on the couch watching TV. His told him he looked unwell. He took his albuterol inhaler twice, but stated this did not feel like asthma. Symptoms self-resolved within the hour. Did not experience of any chest pain, back pain, abdominal pain, arm pain, jaw pain. Stated he is adherent to his medication regimen post- stent. Denies leg pain or swelling. Has a cardiology appointment on Saturday (three days from now). PMHX: as in HPI PSHX: see below Meds: aspirin, brilinta, atorvastatin, pantoprazole, metoprolol Allergies: penicillin Tob: denies Etoh: denies Rec drugs: denies ROS GENERAL/CONSTITUTIONAL: No fever or chills. No weakness. +lightheade dness/dizziness, resolved HEAD, EYES, EARS, NOSE AND THROAT: No change in vision. No ear pain or discharge. No sore throat. CARDIOVASCULAR: No chest pain. +shortness of breath, resolved RESPIRATORY: No cough, wheezing, or hemoptysis. GASTROINTESTINAL: + nausea (resolved), no vomiting, diarrhea or constipation. GENITOURINARY: No dysuria, frequency, or change in urination. MUSCULOSKELETAL: No joint or muscle swelling or pain. No neck or back pain. SKIN: No rash NEUROLOGIC: No headache, vertigo, loss of consciousness, or change in str ength/sensation. ENDOCRINE: No increased thirst. No abnormal weight change HEMATOLOGIC/LYMPHATIC: No anemia, easy bleeding, or history of blood clots. ALLERGIC/IMMUNOLOGIC: No hives or skin allergy. PE GENERAL: Awake, alert, and fully oriented, in no acute distress HEAD: No signs of trauma, normocephalic, atraumatic EYES: PERRLA, EOMI, sclera anicteric, conjunctiva clear ENT: hearing grossly normal, nares patent, oropharynx clear without exudates. Moist mucosa NECK: Normal ROM, supple, no lymphadenopathy, JVD, or masses LUNGS: No distress, speaks full sentences, clear to auscultation bilaterally HEART: Regular rate and rhythm, normal S1 and S2, no murmurs, rubs or gallops, peripheral pulses normal and equal bilaterally. ABDOMEN: Soft, nontender, normoactive bowel sounds. No guarding, no rebound. No masses EXTREMITIES : Normal inspection, Normal range of motion, no edema. No clubbing or cyanosis. NEUROLOGICAL: Cranial nerves II through XII grossly intact. Normal speech, no focal sensorimotor deficits SKIN: Warm, Dry, normal turgor Assessment and Plan 54M history of recent NSTEMI s/p 2 stents one week prior at [facility], HTN, HLD, hemochromatosis, who presents following an episode of diaphoresis, pale appearance nausea, SOB, dizziness/lightheadedness, and warmth while sitting on the couch watching TV. No complaint of chest pain, but given history, will pursue r/o. Differential includes but not limited to ACS, PE, pneumonia. -EKG: NSR, RBBB -CXR: normal chest (my read) -labs: trop 0.07, d-dimer 635, BUN/Cr 22.2/1.4 Will pursue CTA to r/o PE Will get second trop at 2am Signed out to: Dr. Gonzalez Pending CTA and second trop 11/07/19 23:55 11/08/19 00:04 Past History - Medical History Allergies/Adverse Reactions: Allergies Allergy/AdvReac Type Severity Reaction Status Date / Time Penicillins Allergy Verified 11/07/19 22:12 Home Medications: Ambulatory Orders NK [No Known Home Medication] 10/31/19 Asthma: Yes COPD: No HTN: Yes (no med) - Psycho-Social/Smoking History Smoking History: Never smoked Have you smoked in the past 12 months: No Information on smoking cessation initiated: No - Substance Abuse Hx (Audit-C & DAST Scrn) How often the patient has a drink containing alcohol: Never Score: In Men: 4 or > Positive; In Women: 3 or > Positive: 0 Screen Result (Pos requires Nsg. Audit-10AR): Negative In the last yr the pt used illegal drug/Rx for NonMed reason: No Score: Yes response is considered Positive: 0 Screen Result (Positive result requires Nsg. DAST-10): Negative *Physical Exam - Vital Signs Last Vital Signs Temp Pulse Resp BP Pulse Ox 98.6 F 86 20 161/94 97 11/07/19 22:13 11/07/19 22:13 11/07/19 22:13 11/07/19 22:13 11/07/19 22:13 ED Treatment Course - LABORATORY CBC & Chemistry Diagram: 11/07/19 22:55 11/07/19 22:55 - ADDITIONAL ORDERS Additional order review: Laboratory Results 11/07/19 22:55 Creatine Kinase Cancelled Troponin I Cancelled 11/07/19 22:55 RBC 5.64 H MCV 91.4 MCHC 33.8 RDW 13.2 MPV 9.0 Neutrophils % 79.9 Lymphocytes % 9.8 D Monocytes % 7.4 Eosinophils % 2.3 Basophils % 0.6 Discharge - Discharge Information Problems reviewed: Yes Clinical Impression/Diagnosis: Nausea - Follow up/Referral Referrals: Yordy Blancas MD [Primary Care Provider] - - Patient Discharge Instructions - Post Discharge Activity
[2019-11-07 23:22] LABS: INR 1.11 (0.83-1.09); PROTHROMBIN TIME (PATIENT) 13.1 SEC (9.7-13.0)
[2019-11-07 23:37] LABS: ALBUMIN 4.1 g/dl (3.4-5.0); BILIRUBIN,TOTAL 0.7 mg/dL (0.2-1); BLOOD UREA NITROGEN 22.2 mg/dL (7-18); CALCIUM 8.7 mg/dL (8.5-10.1); CREATININE 1.4 mg/dL (0.55-1.3); POTASSIUM 4.1 mmol/L (3.5-5.1); TOT PROT 7.8 g/dl (6.4-8.2)
[2019-11-07] MEDS ORDERED: SODIUM CHLORIDE 0.9% 500 ML INFUS.BAG IV ONE (23:45)
[2019-11-08 01:06] VITALS: BP 135/93; PULSE 76
--- NOTE | 2019-11-08 02:18 | PDOC ---
*Physical Exam - Vital Signs Last Vital Signs Temp Pulse Resp BP Pulse Ox 98.6 F 76 18 135/93 100 11/07/19 22:13 11/08/19 01:05 11/08/19 01:05 11/08/19 01:05 11/08/19 01:05 ED Treatment Course - LABORATORY CBC & Chemistry Diagram: 11/07/19 22:55 11/07/19 22:55 - ADDITIONAL ORDERS Additional order review: Laboratory Results 11/07/19 11/07/19 11/07/19 22:55 22:55 22:55 PT with INR 13.10 H INR 1.11 H D-Dimer Sodium 138 Potassium 4.1 Chloride 103 Carbon Dioxide 26 Anion Gap 9 BUN 22.2 H Creatinine 1.4 H Est GFR (CKD-EPI)AfAm 64.63 Est GFR (CKD-EPI)NonAf 55.77 Random Glucose 122 H Calcium 8.7 Total Bilirubin 0.7 AST 24 ALT 60 Alkaline Phosphatase 102 Creatine Kinase Cancelled 75 Troponin I Cancelled 0.07 H Total Protein 7.8 Albumin 4.1 11/07/19 22:55 PT with INR INR D-Dimer 635 H Sodium Potassium Chloride Carbon Dioxide Anion Gap BUN Creatinine Est GFR (CKD-EPI)AfAm Est GFR (CKD-EPI)NonAf Random Glucose Calcium Total Bilirubin AST ALT Alkaline Phosphatase Creatine Kinase Troponin I Total Protein Albumin 11/07/19 22:55 RBC 5.64 H MCV 91.4 MCHC 33.8 RDW 13.2 MPV 9.0 Neutrophils % 79.9 Lymphocytes % 9.8 D Monocytes % 7.4 Eosinophils % 2.3 Basophils % 0.6 - Medications Given in the ED: ED Medications Discontinued Medications Generic Name Dose Route Start Last Admin Trade Name Freq PRN Reason Stop Dose Admin Sodium Chloride 500 ml 11/07/19 23:45 11/07/19 23:50 Normal Saline - IV 11/07/19 23:46 500 ml ONCE ONE Administration Medical Decision Making - Medical Decision Making Patient signed out by Dr. Barbosa 54yo M with recent cardiac stent placement presenting withdiaphoresis, pale appearance nausea, SOB, dizziness/lightheadedness, and warmth, now resolved Pending second tpn CTA PE negative for acute PE: "COMPARISON: None. Contrast: 72.8 mL Omnipaque 350 intravenous contrast Technique: Following IV contrast administration thin axial images were obtained through the chest for pulmonary artery evaluation by pulmonary embolism protocol with 3-D post- processing included coronal and sagittal reformatted 3-D MIP images which were permanently stored in the patient medical record PACS. FINDINGS: No large central pulmonary embolism. Evaluation of the distal segmental branches are limited by artifact. No aortic aneurysm or dissection. Calcified coronary artery arteriosclerosis is noted. Borderline nonspecific mediastinal lymph nodes. Basilar atelectasis. No pleural effusion. No pneumothorax. Limited evaluation of upper abdomen appears unremarkable. Bridging thoracic osteophytes. Mild to moderate multilevel degenerative disc disease. IMPRESSION: No large central pulmonary embolism. Calcified coronary artery arteriosclerosis is noted. Borderline nonspecific mediastinal lymph nodes. Bridging thoracic osteophytes. Mild to moderate multilevel degenerative disc disease. This CT exam was performed using one or more of the following dose reduction techniques: automated exposure control, adjustment of the mA and/or kV according to patient size, use of iterative reconstruction technique." 11/08/19 02:17 CMP Sodium 138 mmol/L (136-145) 11/07/19 22:55 Potassium 4.1 mmol/L (3.5-5.1) 11/07/19 22:55 Chloride 103 mmol/L (98-107) 11/07/19 22:55 Carbon Dioxide 26 mmol/L (21-32) 11/07/19 22:55 Anion Gap 9 MMOL/L (8-16) 11/07/19 22:55 BUN 22.2 mg/dL (7-18) H 11/07/19 22:55 Creatinine 1.4 mg/dL (0.55-1.3) H 11/07/19 22:55 Est GFR (CKD-EPI)AfAm 64.63 11/07/19 22:55 Est GFR (CKD-EPI)NonAf 55.77 11/07/19 22:55 Random Glucose 122 mg/dL (74-106) H 11/07/19 22:55 Calcium 8.7 mg/dL (8.5-10.1) 11/07/19 22:55 Total Bilirubin 0.7 mg/dL (0.2-1) 11/07/19 22:55 AST 24 U/L (15-37) 11/07/19 22:55 ALT 60 U/L (13-61) 11/07/19 22:55 Alkaline Phosphatase 102 U/L (45-117) 11/07/19 22:55 Creatine Kinase 75 U/L (26-308) 11/07/19 22:55 Creatine Kinase Cancelled 11/07/19 22:55 Troponin I 0.07 ng/ml (0.00-0.05) H 11/08/19 02:09 Total Protein 7.8 g/dl (6.4-8.2) 11/07/19 22:55 Albumin 4.1 g/dl (3.4-5.0) 11/07/19 22:55 Second tpn did not increase Though 0.07 for the tpn is abnormal, I believe this value is elevated due to the patient's recent cardiac procedure Currently feels he is at his baseline; asymptomatic-- no chest pain or shortness of breath To follow up with his vocational rehabilitation technician at his already scheduled appointment Return precautions Stable for discharge Discharge - Discharge Information Problems reviewed: Yes Clinical Impression/Diagnosis: Nausea, Lightheadedness Condition: Stable Disposition: HOME - Follow up/Referral Referrals: Yordy Blancas MD [Primary Care Provider] - - Patient Discharge Instructions Patient Printed Discharge Instructions: DI for Shortness of Breath Additional Instructions: You came into the emergency department after feeling lightheaded and nauseous. Your troponin was mildly elevated (0.07) and this is likely due to your recent cardiac procedure. Other lab work, Xray, and EKG did not indicate acute pathology. A CT scan of your chest did not show a blood clot. Eat and hydrate throughout the day to prevent dehydration and low blood sugar levels. Continue taking home medications as prescribed by your physician. Follow up with your vocational rehabilitation technician at your already scheduled appointment. Your workup is not complete until you do so. Immediate medical attention is required if you have: any chest pain, palpitations, shortness of breath, severe headaches, changes in vision, episodes of fainting, focal numbness or weakness, any severe abdominal pain, any black tarry stool, or any new or concerning symptoms. If you think you are having an emergency, call for emergency medical services or present to the emergency department right away. - Post Discharge Activity
--- NOTE | 2019-11-08 11:27 | EKG ---
Test Reason : Blood Pressure : / mmHG Vent. Rate : 082 BPM Atrial Rate : 082 BPM P-R Int : 156 ms QRS Dur : 100 ms QT Int : 404 ms P-R-T Axes : 053 -27 060 degrees QTc Int : 472 ms NORMAL SINUS RHYTHM INCOMPLETE RIGHT BUNDLE BRANCH BLOCK BORDERLINE ECG WHEN COMPARED WITH ECG OF 31-OCT-2019 08:42, NO SIGNIFICANT CHANGE WAS FOUND Confirmed by CON RODRIGUEZ MD ([id number]) on 11/08/2019 11:27:14 AM Referred By: Confirmed By:CON RODRIGUEZ MD
== END 2019-11-08 03:03 | disposition home or self-care (01) ==
LOC: JER 22:11
DX: R42 Dizziness and giddiness (principal); R11.0 Nausea
CPT/HCPCS: 36415; 71046-TC-FY; 71275-TC; 80053; 82550; 84484; 85025; 85379; 85610; 93005; 93010; 99285-25; Q9967

== ENCOUNTER 2021-11-30 01:15 | Emergency (ER) | payer BC ==
[2021-11-30 01:35] VITALS: BP 128/78; PULSE 81; RESP 20; TEMP 98.5; BMI 25.8
[2021-11-30 03:04] LABS: BASO % 0.6 % (0-2.0); EOS % 1.8 % (0-4.5); HEMATOCRIT 45.2 % (35.4-49); HEMOGLOBIN 15.3 GM/dL (11.7-16.9); LYMPH % 12.9 % (8-40); MCH 30.3 pg (25.7-33.7); MCHC 33.9 g/dl (32.0-35.9); MEAN CELL VOLUME 89.3 fl (80-96); MEAN PLT VOLUME 8.4 fl (7.5-11.1); MONO % 9.6 % (3.8-10.2); NEUT % 75.1 % (42.8-82.8); PLATELET COUNT 162 10^3/uL (134-434); RBC 5.06 M/mm3 (4.00-5.60); RDW 13.6 % (11.9-15.9); WHITE BLOOD COUNT 6.4 K/mm3 (4.0-10.0)
[2021-11-30 03:12] LABS: INR 1.03 (0.83-1.09); PROTHROMBIN TIME (PATIENT) 11.8 SEC (9.7-13.0)
[2021-11-30 03:14] LABS: ACTIVATED PTT 32.5 SECONDS (25.2-36.5)
[2021-11-30 03:26] LABS: ALBUMIN 3.8 g/dl (3.4-5.0); CALCIUM 8.4 mg/dL (8.5-10.1)
[2021-11-30 03:29] LABS: CREATININE 0.8 mg/dL (0.55-1.3)
[2021-11-30 03:31] LABS: BILIRUBIN,TOTAL 0.6 mg/dL (0.2-1); TOT PROT 6.9 g/dl (6.4-8.2)
== END 2021-11-30 04:38 | disposition left against medical advice (07) ==
LOC: JER 01:15
DX: R07.9 Chest pain, unspecified (principal)
CPT/HCPCS: 36415; 71045-TC-FY; 80053; 84484; 85025; 85610; 85730; 93005; 93010; 99285-25; C9803-CS; U0003; U0005

== ENCOUNTER 2022-06-18 15:24 | Emergency (ER) | payer BC ==
[2022-06-18 15:40] VITALS: TEMP 98.4; BMI 32.8
[2022-06-18] MEDS ORDERED: SODIUM CHLORIDE 0.9% 500 ML INFUS.BAG IV ONE (16:51)
[2022-06-18 17:00] VITALS: RESP 16
[2022-06-18] MEDS ORDERED: ALBUTEROL SO4 2.5/IPRATROPIUM 0.5 INH SOL 3 ML VIAL.NEB. NEB ONE (17:05)
[2022-06-18] MEDS: ALBUTEROL SO4 2.5/IPRATROPIUM 0.5 INH SOL 3 ML VIAL.NEB. NEB SCH ×2 (17:09→18:43)
[2022-06-18 17:10] LABS: BASO % 0.6 % (0-2.0); EOS % 2.6 % (0-4.5); HEMATOCRIT 46.8 % (35.4-49); LYMPH % 10.3 % (8-40); MCH 30.9 pg (25.7-33.7); MCHC 34.1 g/dl (32.0-35.9); MEAN CELL VOLUME 90.4 fl (80-96); NEUT % 79.5 % (42.8-82.8); PLATELET COUNT 280 10^3/uL (134-434); RBC 5.18 M/mm3 (4.00-5.60); RDW 13.6 % (11.9-15.9); WHITE BLOOD COUNT 9.5 K/mm3 (4.0-10.0)
[2022-06-18 17:19] LABS: INR 1.05 (0.83-1.09); PROTHROMBIN TIME (PATIENT) 12.2 SEC (9.7-13.0)
[2022-06-18 17:22] LABS: ACTIVATED PTT 35.8 SECONDS (25.2-36.5)
[2022-06-18 17:31] LABS: CALCIUM 9.3 mg/dL (8.5-10.1)
[2022-06-18 17:32] LABS: ALBUMIN 4.2 g/dl (3.4-5.0); BLOOD UREA NITROGEN 15.5 mg/dL (7-18)
[2022-06-18 17:36] LABS: BILIRUBIN,TOTAL 0.9 mg/dL (0.2-1)
[2022-06-18 17:37] LABS: TOT PROT 8.4 g/dl (6.4-8.2)
[2022-06-18 17:40] LABS: CREATININE 0.9 mg/dL (0.55-1.3)
[2022-06-18] MEDS ORDERED: DEXAMETHASONE SOD PHOSPHATE 10 MG/1 ML VIAL IVPUSH ONE (18:36)
[2022-06-18] MEDS ORDERED: DEXAMETHASONE SOD PHOSPHATE 10 MG/1 ML VIAL ONE (18:46)
[2022-06-18 19:08] VITALS: BP 158/82; PULSE 82
== END 2022-06-18 19:08 | disposition home or self-care (01) ==
LOC: JER 15:24
PROC: 3E0333Z Introduction of Anti-inflammatory into Peripheral Vein, Percutaneous Approach (ICD-10-PCS; principal; 2022-06-18)
DX: J45.901 Unspecified asthma with (acute) exacerbation (principal)
CPT/HCPCS: 0241U-QW; 36415; 71046-TC-FY; 80053; 84484; 85025; 85610; 85730; 93005; 93010; 99285-25

== ENCOUNTER 2022-10-21 23:05 | Emergency (ER) | payer BC ==
[2022-10-21 23:17] VITALS: BP 170/89; PULSE 72; RESP 18; TEMP 98.5; BMI 32.8
[2022-10-21] MEDS ORDERED: METOCLOPRAMIDE HCL INJECTION 10 MG/2 ML VIAL ONE (23:59)
[2022-10-22] MEDS: METOCLOPRAMIDE HCL INJECTION 10 MG/2 ML VIAL IM ONE ×2 (00:11→00:24)
[2022-10-22] MEDS ORDERED: KETOROLAC TROMETHAMINE 30 MG/1 ML VIAL IM ONE (00:25)
[2022-10-22] MEDS ORDERED: KETOROLAC TROMETHAMINE 30 MG/1 ML VIAL ONE (00:27)
[2022-10-22] MEDS ORDERED: METOCLOPRAMIDE HCL INJECTION 10 MG/2 ML VIAL ONE (00:49)
== END 2022-10-22 01:02 | disposition home or self-care (01) ==
LOC: JER 23:05
PROC: 3E0233Z Introduction of Anti-inflammatory into Muscle, Percutaneous Approach (ICD-10-PCS; principal; 2022-10-22)
DX: R51.9 Headache, unspecified (principal); W01.0XXA Fall on same level from slipping, tripping and stumbling without subsequent striking against object, initial encounter; Y93.89 Activity, other specified; Y92.219 Unspecified school as the place of occurrence of the external cause; Y99.0 Civilian activity done for income or pay
CPT/HCPCS: 70450-TC; 72125-TC; 99284-25